=== PATIENT | male | born 1955 | race Caucasian/White ===

== ENCOUNTER 2021-11-02 04:56 | Emergency (ER) | payer MEDICARE, OTHER ==
[~2021-11-02 04:56] MED LIST: ALLOPURINOL300 MG PO; ASPIR-LOW81 MG PO; CARTIA XT240 MG PO; KLOR-CON M 1010 MEQ PO; LOSARTAN-HCTZ1 EACH PO; XANAX0.5 M1 PO; ZOCOR40 MG PO
[2021-11-02 05:52] LABS: BASOPHIL 0.8 % (0-2); EOSINOPHIL 5.7 % (0-7); HCT 48.2 % (42.0-52.0); LYMPHOCYTE 23.3 % (15-48); MCHC 33.2 g/dL (32.0-36.0); MCV 90.3 fL (78.0-100.0); MONOCYTE 6.2 % (0-12); MPV 11.5 fL (6.0-9.5); NEUTROPHIL 63.7 % (41-80); NRBC 0; PLT 241 K/uL (150-400); RBC 5.34 M/uL (4.70-6.00); RDW 12.9 % (11.5-14.0); WBC 9.7 K/uL (4.0-10.5)
[2021-11-02 05:57] LABS: CREATININE 0.94 mg/dL (0.67-1.17); POTASSIUM 3.5 mmol/L (3.5-5.1)
[2021-11-02] MEDS ORDERED: VENTOLIN HFA18 GM INH (08:39)
[2021-11-02] MEDS ORDERED: MEDROL 4MG DOSEP4 MG PO (08:39)
[2021-11-02] MEDS ORDERED: ZPAK PO (08:39)
== END 2021-11-02 08:58 | disposition home or self-care (01) ==
LOC: FER 04:56
PROVIDERS: Emergency Medicine Emergency Medical Services
DX: J40 Bronchitis, not specified as acute or chronic (principal); I10 Essential (primary) hypertension; Z20.822 Contact with and (suspected) exposure to COVID-19
CPT/HCPCS: 36415; 36600; 71045; 71275; 80048; 82803; 83880; 84484; 85025; 85379; 93005; 94640; 94664; Q9967; U0002